=== PATIENT | female | born 1990 | race Caucasian/White ===

== ENCOUNTER → 2017-04-13 | Outpatient (CLI) | payer BC ==
[2017-04-13 18:49] LABS: URINE APPEARANCE CLEAR (CLEAR); URINE BILIRUBIN NEG (NEG); URINE COLOR YELLOW; URINE NITRITE NEG (NEG); URINE SPECIFIC GRAVITY 1.016 (1.000-1.030); UROBILINOGEN NEG (NEG)
[2017-04-13 18:55] LABS: MANUAL MICROSCOPIC REQUIRED? NO; REVIEW REQ? NO
== END | disposition home or self-care (01) ==
LOC: C.LABSPEC 17:52
PROVIDERS: ATTEND Obstetrics & Gynecology
DX: O09.10 Supervision of pregnancy with history of ectopic pregnancy, unspecified trimester (principal); Z3A.00 Weeks of gestation of pregnancy not specified

== ENCOUNTER → 2017-04-22 | Outpatient (CLI) | payer BC | END | disposition home or self-care (01) | LOC: C.PAPS 09:32 | PROVIDERS: ATTEND Obstetrics & Gynecology | DX: O09.299 Supervision of pregnancy with other poor reproductive or obstetric history, unspecified trimester (principal); Z3A.00 Weeks of gestation of pregnancy not specified ==

== ENCOUNTER → 2017-04-22 | Outpatient (CLI) | payer BC ==
[2017-04-22 16:41] LABS: BASO % 0.2 %; BASO ABS # 0.02 K/uL (0-0.2); COMPLETE YES; EOS % 0.8 %; HEMATOCRIT 42.7 % (37-47); IG% 0.3 %; LYMPH % 17.5 %; LYMPH ABS # 1.83 K/uL (1.2-3.4); MEAN CELL VOLUME 86.6 fL (80-100); MEAN CORPUSCULAR HEMOGLOBIN 29.4 pg (25-34); MEAN PLATELET VOLUME 10.3 fL (7.4-10.4); MONO % 8.5 %; NEUT % 72.7 %; PLATELET COUNT 271 K/uL (130-400); RED BLOOD COUNT 4.93 M/uL (4.2-5.4); WHITE BLOOD COUNT 10.44 K/uL (4.8-10.8)
[2017-04-25 13:45] LABS: CHLAMYDIA TRACH RNA*** NOT DETECTED (NOT DETECTED); GC (NEIS GONORRHOEAE)RNA** NOT DETECTED (NOT DETECTED)
== END | disposition home or self-care (01) ==
LOC: C.LAB1850 15:12
PROVIDERS: ATTEND Obstetrics & Gynecology
DX: O09.299 Supervision of pregnancy with other poor reproductive or obstetric history, unspecified trimester (principal); Z3A.00 Weeks of gestation of pregnancy not specified

== ENCOUNTER → 2017-08-26 | Outpatient (CLI) | payer BC | END | disposition home or self-care (01) | LOC: C.LABSPEC 17:53 | PROVIDERS: ATTEND Obstetrics & Gynecology | DX: Z34.82 Encounter for supervision of other normal pregnancy, second trimester (principal) ==

== ENCOUNTER → 2017-09-10 | Outpatient (CLI) | payer BC | END | disposition home or self-care (01) | LOC: C.LAB1850 15:16 | PROVIDERS: ATTEND Obstetrics & Gynecology | DX: Z34.83 Encounter for supervision of other normal pregnancy, third trimester (principal) ==

== ENCOUNTER → 2017-09-16 | Outpatient (CLI) | payer BC ==
[2017-09-16 17:20] LABS: HEMATOCRIT 35.1 % (37-47); HEMOGLOBIN 11.7 g/dL (12.0-16.0)
== END | disposition home or self-care (01) ==
LOC: C.LAB1850 16:23
PROVIDERS: ATTEND Obstetrics & Gynecology
DX: Z34.82 Encounter for supervision of other normal pregnancy, second trimester (principal)

== ENCOUNTER → 2017-10-28 | Outpatient (CLI) | payer BC ==
[~2017-10-28] MED LIST: PRENTAB26 PO
== END | disposition home or self-care (01) ==
LOC: C.LAB1850 13:50
PROVIDERS: ATTEND Family Medicine
DX: Z34.03 Encounter for supervision of normal first pregnancy, third trimester (principal)

== ENCOUNTER 2017-10-30 23:49 | Inpatient (IN) | payer BC ==
[~2017-10-30] VITALS: Ht 154.9 cm; Wt 74.8 kg
[2017-10-31] MEDS ORDERED: LACTATED RINGER'S 1000ML 1,000 ML IV PRN (00:11)
[2017-10-31] MEDS ORDERED: LACTATED RINGER'S 1000ML 1,000 ML IV SCH (00:11)
[2017-10-31] MEDS ORDERED: PENICILLIN G POTASSIUM IV 6 MU in DEXTROSE 5% 250ML 250 ML IV ONE (00:15)
[2017-10-31] MEDS ORDERED: PENICILLIN G POTASSIUM IV 3 MU in DEXTROSE 5% 100ML 100 ML IV PRN (00:15)
[2017-10-31] MEDS ORDERED: MISOPROSTOLTAB 50 MCG TAB PO PRN (00:15)
[2017-10-31 00:57] LABS: BASO % 0.1 %; BASO ABS # 0.01 K/uL (0-0.2); EOS % 0.8 %; HEMOGLOBIN 11.9 g/dL (12.0-16.0); IG# 0.06 K/uL (0.00-0.02); LYMPH % 21.9 %; LYMPH ABS # 2.87 K/uL (1.2-3.4); MEAN CELL VOLUME 78.9 fL (80-100); MEAN CORPUSCULAR HEMOGLOBIN 26.1 pg (25-34); MEAN PLATELET VOLUME 9.9 fL (7.4-10.4); MONO % 8.7 %; MONO ABS # 1.14 K/uL (0.11-0.59); NEUT ABS # 8.91 K/uL (1.4-6.5); PLATELET COUNT 263 K/uL (130-400); RED CELL DISTRIBUTION WIDTH CV 15.9 % (11.5-14.5); RED CELL DISTRIBUTION WIDTH SD 45.4 fL (36.4-46.3); WHITE BLOOD COUNT 13.09 K/uL (4.8-10.8)
[2017-10-31 01:04] LABS: MEAN CORPUSCULAR HGB CONC 33.1 g/dl (32-36)
[2017-10-31 01:05] LABS: INR 0.9 (0.9-1.1)
[2017-10-31 01:08] VITALS: Ht 154.9 cm; Wt 74.8 kg
[2017-10-31] MEDS ORDERED: PRENTAB26 PO (01:08)
[2017-10-31 01:23] LABS: ALBUMIN 2.5 gm/dl (3.4-5.0); ALKALINE PHOSPHATASE 158 U/L (45-117); ALT/SGPT 12 U/L (12-78); AST/SGOT 15 U/L (15-37); CREATININE 0.64 mg/dl (0.60-1.20); TOTAL PROTEIN 6.5 gm/dl (6.4-8.2); URIC ACID 3.8 mg/dl (2.6-7.2)
[2017-10-31] MEDS ORDERED: EpHEDrine SULFATE INJ 50 MG/ML AMP ONE (04:25)
[2017-10-31] MEDS ORDERED: FENTANYL CITRATE INJ 50 MCG/1 ML 2 ML VIAL ONE (04:25)
[2017-10-31] MEDS ORDERED: BUPIVACAINE 0.25% 30 ML VIAL ONE (04:25)
[2017-10-31] MEDS ORDERED: FENTANYL 2MCG/ML ROPIV 1.25MG/ML 100ML BAG EPI ONE (04:26)
[2017-10-31] MEDS ORDERED: BUTORPHANOL TARTRATE 1 MG/ML VIAL IV PRN (04:30)
[2017-10-31] MEDS ORDERED: NALOXONE HCL INJ 1 MG in SODIUM CHLORIDE 0.9% 1000ML 1,000 ML IV PRN (05:46)
[2017-10-31] MEDS ORDERED: LACTATED RINGER'S 1000ML 500 ML IV PRN (05:46)
[2017-10-31] MEDS ORDERED: EpHEDrine SULFATE INJ 50 MG/ML AMP IV PRN (06:00)
[2017-10-31] MEDS ORDERED: FENTANYL 2MCG/ML ROPIV 1.25MG/ML 100ML BAG EPI PRN (06:00)
[2017-10-31] MEDS ORDERED: NALOXONE HCL INJ 0.4 MG/1 ML VIAL/CARP IV PRN (06:00)
[2017-10-31] MEDS ORDERED: ONDANSETRON INJ 2 MG/ML 2 ML VIAL IV PRN (06:00)
[2017-10-31] MEDS ORDERED: DiphenhydrAMINE HCL 50 MG/ML VIAL IV PRN (06:00)
[2017-10-31] MEDS ORDERED: NALBUPHINE HCL INJ 10 MG/ML AMP IV PRN (06:00)
[2017-10-31] MEDS ORDERED: OXYTOCIN 30 UNITS/500ML NSS IV ONE (06:17)
[2017-10-31] MEDS ORDERED: HYDROCORTISONE ACETATE 25 MG SUPP PR PRN (07:15)
[2017-10-31] MEDS ORDERED: SUPERCREAM 0.870 % 15GM JAR EXT PRN (07:15)
[2017-10-31] MEDS ORDERED: ACETAMINOPHEN 325 MG TAB PO PRN (07:15)
[2017-10-31] MEDS ORDERED: IBUPROFEN 600 MG TAB PO PRN (07:15)
[2017-10-31] MEDS ORDERED: DIPHTHERIA/TETANUS/PERTUSSIS 0.5 ML SYR/VIAL IM. ONE (07:15)
[2017-10-31] MEDS ORDERED: OXYTOCIN 30 UNITS/500ML NSS IV PRN (07:15)
[2017-10-31] MEDS ORDERED: ACETAMINOPHEN/CODEINE 300/30MG TAB PO PRN ×2 (07:15)
[2017-10-31] MEDS ORDERED: BENZOCAINE 20% AER SPR 82.5 GM CAN EXT PRN (07:15)
[2017-10-31] MEDS ORDERED: LANOLIN OINT EXT PRN (07:15)
--- NOTE | 2017-10-31 07:40 | DELIVERY SUMMARY ---
DATE OF OPERATION: 10/31/2017 FINDINGS: Viable male with Apgars of 8 and 9. Baby delivered over a small second degree laceration. Placenta delivered spontaneously. Estimated blood loss 300 mL. LABOR NOTE: The patient is a 27-year-old 4, para 0 with an EDC of 11/20/2017, 37 weeks gestational age who presented to labor and delivery with spontaneous rupture of membranes. The patient states that she had a gush of clear fluid around 2200 hours on the 30 of October. She denied contractions. The patient has had some mildly elevated blood pressures in the last two visits in the office. PIH labs and a 24-hour urine were to be done this weekend. Labs for the showed the blood type of O negative, antibody negative. She received RhoGAM on 10 September. She is rubella immune, hepatitis B negative. She declined cell free DNA testing and maternal serum AFP. She had a normal 1-hour Glucola x2. Her third trimester beta strep culture was pending. Admission physical showed a gravid female. Blood pressure of 142/89. Cervix was 1 cm dilated, 75% and -2 station. She had a positive AmniSure consistent with rupture of membranes. heart rate tracing was category 2 with moderate variability, but there were accelerations and the baseline was in the 180s. PIH labs were drawn and checked and they were all within normal limits. Because of the unknown GBS status, the patient received a loading dose of penicillin 6 milliunits and then 3 milliunits every 4 hours until delivery. Discussed with the patient and she was given Cytotec 50 mcg p.o. to induce labor. The patient began to contract regularly, progressed to 3 cm and requested an epidural. Right after the epidural was placed, the patient was fully dilated and began her second stage. She pushed for approximately an hour, delivering the viable male . Cord was clamped and cut. Cord blood sample was obtained. Placenta delivered spontaneously. Inspection of the perineum showed a small second degree midline laceration which was repaired with interrupted [id number] 4-0 Vicryl sutures. Estimated blood loss was 300 mL. Sponge and needle count was correct. I attest to the content of the Intraoperative Record and any orders documented therein. Any exception s are noted below.
--- NOTE | 2017-10-31 08:51 | Anesthesia Procedure Note ---
Anesthesia Epidural Removal Nt Date & Time Oct 31, 2017 at 08:50 Vital Signs Pain Intensity: 0.0 Notes Mental Status: alert / awake / arousable, participated in evaluation Nausea / Vomiting: adequately controlled Pain: adequately controlled Airway Patency, RR, SpO2: stable & adequate BP & HR: stable & adequate Hydration State: stable & adequate Neuraxial Anesthesia: was administered Anesthetic Complications: no major complications apparent, pt satisfied with anesthetic care Epidural: removed without complications, with tip intact
[2017-10-31] MEDS: FERROUS SULFATE 325 MG TAB PO SCH (09:21)
[2017-10-31] MEDS: PRENATAL VITAMIN TAB PO SCH (09:21)
[2017-10-31] MEDS: DOCUSATE SODIUM 100 MG CAP PO SCH ×2 (09:21→20:11)
[2017-10-31 10:22] VITALS: BP 141/84; PULSE 105; TEMP 36.7
[2017-10-31 12:50] VITALS: BP 140/76; PULSE 109; TEMP 36.3
[2017-10-31 15:15] VITALS: BP 127/85; PULSE 88; TEMP 36.6; O2SAT 98
[2017-10-31 19:20] VITALS: BP 144/85; PULSE 105; TEMP 36.7; O2SAT 98
[2017-10-31 23:45] VITALS: BP 120/79; PULSE 83; TEMP 36.8; O2SAT 99
[2017-11-01 03:15] VITALS: BP 127/78; PULSE 86; TEMP 36.7; O2SAT 97
[2017-11-01 06:59] LABS: HEMATOCRIT 36.2 % (37-47); HEMOGLOBIN 11.5 g/dL (12.0-16.0)
--- NOTE | 2017-11-01 08:29 | Progress Note ---
Subjective Nov 01, 2017. Subjective conversation w/ patient, physical exam Ambulation: ambulating normally Voiding: no voiding problems Passing Gas: Yes Diet Tolerance: Regular Diet Lochia: Small Feeding Type: Breast Feeding Review of Systems Constitutional: No fever, No chills, No sweats, No weight loss, No weakness, No fatigue, No problem reported Female : No see HPI, No dysuria, No urinary frequency, No hematuria, No incontinence, No abnormal vaginal bleeding, No vaginal discharge, No problem reported Objective Vital Signs Date Time Temp Pulse Resp B/P (MAP) Pulse Ox O2 Delivery O2 Flow Rate FiO2 11/01/17 03:15 36.7 86 18 127/78 (94) 97 Room Air 10/31/17 23:45 36.8 83 20 120/79 (93) 99 Room Air 10/31/17 23:45 99 Room Air 10/31/17 19:20 36.7 105 18 144/85 (104) 98 Room Air 10/31/17 15:15 36.6 88 18 127/85 (99) 98 Room Air 10/31/17 15:15 98 Room Air 10/31/17 12:50 36.3 109 16 140/76 (97) Room Air 10/31/17 10:22 Room Air 10/31/17 10:22 36.7 105 16 141/84 (103) Room Air Physical Exam General Appearance: WELL-APPEARING, NO APPARENT DISTRESS Abdomen: non tender, soft Fundus: Firm, Non-Tender, Relation to Umbilicus (1 below U) Extremities: no calf tenderness Laboratory Results Last 24 Hours Test 11/01/17 06:41 Hemoglobin 11.5 g/dL Hematocrit 36.2 % Assessment and Plan Day#: 1 Continue Routine Care: stable course continue current care plan
[2017-11-01 08:30] VITALS: BP 118/84; PULSE 88; TEMP 36.9; O2SAT 97
--- NOTE | 2017-11-01 08:31 | Discharge Instructions ---
Discharge Instructions Date of Service Nov 01, 2017. Admission Reason for Admission: Encounter For Supervision Of Normal Intrauterine Discharge Discharge Diagnosis / Problem: normal delivery Discharge Goals Goal(s): Routine recovery after delivery Medications Continue Dispensed Medications: supercream, dermaplast, tucks, lansinoh Activity Recommendations Activity Limitations: per Instructions/Follow-up section . Instructions / Follow-Up Instructions / Follow-Up ACTIVITY RECOMMENDATIONS: * Gradual return to full activity over the next 2-3 weeks. * No lifting - nothing heavier than baby over the next 2-3 weeks. * Do not engage in vigorous exercise, sexual activity or sports until cleared by your physician. * Do not drive or operate any motorized equipment until cleared by your physician. * You may shower/bathe daily. MEDICATIONS: For discomfort or pain, you may use Acetaminophen (Tylenol), Ibuprofen (Advil), or Naproxen (Aleve) following the package directions. For constipation you may use Colace following the package directions. BREAST CARE: If you are not breast feeding: * Wear a supportive bra 24 hours a day for one to two weeks. * Avoid stimulating your breasts and nipples as much as possible during the first few weeks after delivery. * When taking a shower, have the warm water hit your back, not breasts. * When your breasts feel full, apply ice packs. Usually three to four times a day helps ease the discomfort. * Take a mild pain medication (Tylenol / Motrin) when you are uncomfortable. If breast feeding: * Use breast milk to lubricate nipples. Lansinoh cream may be used for sore nipples. You do not need to remove cream prior to breast feeding. If using a different brand of cream, check the label for directions regarding removal of cream prior to nursing. * Wear a supportive bra. * If having problems with breasts or breast feeding, call a analytical consultant or your health care provider. EPISIOTOMY CARE: After delivery, if you have an episiotomy (stitches), the following steps will ease discomfort and aid healing. * For the first 24 hours after delivery, place ice packs next to your episiotomy to help reduce swelling. * After the first 24 hour-period, sitz baths, either portable or in the tub, are suggested. A shower with a shower arm sprayed over the episiotomy may be comforting. * Ольга care should be done after each voiding and bowel movement. Squirt warm water from a plastic bottle over the perineum (region of the body between the anus and urinary opening) and pat dry. * Use Dermoplast to ease discomfort. Shake container. Mouthcard directly over the episiotomy. Place a Tucks on a clean sanitary pad next to your episiotomy. SPECIAL CARE INSTRUCTIONS: When you are discharged from the hospital, it is important for you to follow the instructions listed below: * During the first week at home, you should be able to care for yourself and your baby. In addition, the usual light household activities are encouraged. * Limit your activities to the way you feel. Do not try to clean the house or move furniture. Be sensible. * If you actively engage in sports and have done so up until the time of your delivery, you may resume these activities as soon as you feel able. This may take up to one month or even longer. Use good judgment. * Continue to take your vitamins for at least six weeks after the of your baby. * Your diet need not be limited unless you were on a special diet before your delivery. Breast-feeding mothers need around 2500 calories per day and at least 64-80 ounces of fluid per day (8 to 10 glasses). * You should eat foods from the four major food groups. Crash diets or fad diets are to be avoided. Eating lean meats, fresh fruits and vegetables, low-fat dairy products, high fiber foods and a regular exercise program, will help you get back to your pre- weight without putting your health at risk. * Constipation is sometimes a problem after delivery. Take a mild laxative as needed. If breast feeding, Milk of Magnesia is acceptable to use. You may use a suppository or Fleets enema if no episiotomy. * A daily shower or tub bath is suggested. Be sure to thoroughly and gently dry the perineum. * A bloody vaginal discharge will usually continue until around four weeks post . A small amount of bleeding may continue for as long as six weeks. Vaginal discharge changes from the bright red bleeding after delivery to pink then brownish and finally yellowish-pink before becoming white and disappearing. * Bleeding may increase with activity. Your first period may come in 4-8 weeks. If you are breast feeding, your period may be delayed even longer. * [place] (sex) can begin whenever both you and your partner feel comfortable and do not have any form of genital infection. It is recommended that you wait at least six weeks for internal and external healing to occur. If you have questions, please talk to your health care practitioner. A condom should be used to prevent infection and . * Foreplay, gentle intercourse and lubrication is very important the first several times to prevent pain. A water-based lubricant such as K-Y jelly or Astroglide may be used. * If you have RH negative blood and your baby is RH positive, you will receive RHOGAM by injection prior to discharge. The nurse will give you a card to keep with you that has the date and place that you received RHOGAM after delivery. * During your care, you had a Rubella screen done to check for the presence of rubella antibodies in your blood. If your test was negative, you will receive a Rubella vaccine prior to discharge. This vaccine may cause a fever, soreness at the injection site and flu-like symptoms. If these symptoms persist, notify your health care practitioner. is not advised for one month after a Rubella vaccine. * Verbalizes understanding of car seat law as reviewed with patient nursing. * Car Seat hand-out given and reviewed with patient by nursing. * Shaken baby information reviewed with patient by nursing. Call you doctor if: * Heavy bleeding (saturating several pads an hour) or passing clots the size of your fist. * A fever >101 degrees F (38.3 degrees C) on two occasions four hours apart and /or chills. * Unusual pain in the pelvic or vaginal areas. * "Baby Blues" lasting longer than two weeks. If you have any questions or concerns, call your health care practitioner at . FOLLOW UP VISIT: * Please call the office at to schedule a 6 week examination. It is important you keep this appointment. It is important for you to make arrangements for either yearly or twice yearly check-ups thereafter. Current Hospital Diet Patient's current hospital diet: Regular OB Diet Discharge Diet Recommended Diet: Regular OB Diet Pending Studies Studies pending at discharge: no Medical Emergencies . Who to Call and When: Medical Emergencies: If at any time you feel your situation is an emergency, please call 911 immediately. . Non-Emergent Contact Non-Emergency issues call your: Certified Pest Control Technician . . "Provider Documentation" section prepared by Paz Mayfield .
[2017-11-01] MEDS: DOCUSATE SODIUM 100 MG CAP PO SCH ×2 (08:46→20:00)
[2017-11-01] MEDS: FERROUS SULFATE 325 MG TAB PO SCH (08:46)
[2017-11-01] MEDS: PRENATAL VITAMIN TAB PO SCH (08:46)
[2017-11-01 16:05] VITALS: BP 126/87; PULSE 97; TEMP 36.7; O2SAT 98
[2017-11-01 19:45] VITALS: BP 133/88; PULSE 97; TEMP 36.7
[2017-11-01] MEDS ORDERED: BISACODYL 5 MG TABEC PO SCH (20:00)
[2017-11-01 20:44] VITALS: BP_DIAS 88; PULSE 97; TEMP 36.7
== END 2017-11-01 20:44 | disposition home or self-care (01) | DRG 775 ==
LOC: C.OPB 23:49 → C.LD 23:50 → C.OPB 10-31 00:15 → C.OBG 10-31 14:38
PROVIDERS: ADMIT Obstetrics & Gynecology; ATTEND Obstetrics & Gynecology
PROC: 0KQM0ZZ Repair Perineum Muscle, Open Approach (ICD-10-PCS; principal; 2017-10-31)
PROC: 10E0XZZ Delivery of Products of Conception, External Approach (ICD-10-PCS; principal; 2017-10-31)
DX: O42.02 Full-term premature rupture of membranes, onset of labor within 24 hours of rupture (principal); O70.1 Second degree perineal laceration during delivery; Z3A.37 37 weeks gestation of pregnancy; Z37.0 Single live birth

== ENCOUNTER 2021-11-21 08:17 | Inpatient (IN) ==
[2021-11-21] MEDS ORDERED: OXYTOCIN 30 UNITS/500 ML BAG IV PRN (20:18)
--- NOTE | 2021-11-21 20:18 | History & Physical Report ---
Date of Service November 21, 2021 Assessment & Plan (1) Gestational HTN: Plan: Patient is met the criteria for gestational hypertension the recommendation is induction at 37-37 and 6 weeks gestation she is 37 weeks and 0 days today so she will be induced. Plan has been to induce her this morning however labor and delivery was very busy and we did not have availability at that time Small catheter was placed in her cervix tonight as her cervix was only 1 cm she tolera chun this well 30 cc was placed in the balloon sterile technique The patient is hungry at this time will allow a small amount of dinner and induced with Pitocin Admission and Anticipated Discharge Date Admission Date: November 21, 2021 History of Present Illness Primary Care Provider: Julien Solano Current Estimate 12/12/21 LMP (Certain) 36w 6d LMP: 03/07/21 : 5 Full term: 1 Premature: 0 Total Number of Induced Abortions: 0 Total Number of Spontaneous Abortions: 2 Ectopics: 1 Multiple births: 0 Number of Living Children: 1 and Delivery Plans Rhogam given 09/23/21 OC GBS positive Gest HTN (11/18/21) *Weekly BP chk's with Doc *Weekly CBC, LFTs *Weekly NSTs @32wks and twice wkly @36wks *Growth US Q4wks *If IUGR: DELPHINE w/UAD's weekly *Deliver 37-38wks (11/21/21) Allergies Allergy/AdvReac Type Severity Reaction Status Date / Time No Known Drug Allergies Allergy Unknown . Verified 11/20/21 15:07 Home Medications Medication Instructions Recorded Confirmed Type folic acid 800 mcg tablet 800 mcg PO DAILY tab 04/23/19 11/21/21 History prenat.vits,christina,[id number] 1 tab PO DAILY 04/23/19 11/21/21 History cholecalciferol (vitamin D3) 1,000 units PO DAILY 05/30/19 11/21/21 History Patient History Medical History History of varicella Hx of migraines Surgical History H/O oral surgery Hx of ectopic left salpingectomy Family History Mother Hypertension Thyroid disorder Social History Smoking Status: Never smoker Hx Alcohol Use: No Hx Substance Use: No Preferred Language: Croatian Communication Ability: Effective Supervisor [employer] Required: No Beliefs That Will Affect Care: None marital status: marital status details: Jeremy (34) [phone] Current Living Situation: Spouse Current Living Situation Comment: lives with spouse, son, 1 dog. current occupational status: employed current occupation: [email or web address] office Other Information That Helps Us Care for You: No Feels Safe at Home: Yes Safety Concerns: Feels Safe At This Time Assistive Devices: Contacts Results & Data ([facility]) Vital Signs (Past 12 Hours) Vital Signs Temp Pulse Resp BP 11/21/21 19:08 98.6 F 93 H 16 134/84 11/21/21 17:39 98.8 F 20 11/21/21 17:28 87 119/85 11/21/21 17:18 98.8 F 20 Coding Level of Care Code None Diagnoses Gestational HTN O13.9
[2021-11-21] MEDS ORDERED: PENICILLIN G POTASSIUM 6 MU in DEXTROSE 5% 250 ML IV ONE (20:30)
[2021-11-21 20:39] LABS: Hematocrit (blood only) 37.6 % (37-47); Hemoglobin 12.4 g/dL (12.0-16.0); Mean Corpuscular Hemoglobin 27.6 pg (25-34); Mean Corpuscular Volume 83.6 fL (80-100); Mean Platelet Volume 10.2 fL (7.4-10.4); Platelet Count 258 K/uL (130-400); RDW Coefficient of Variation 14.7 % (11.5-14.5); RDW Standard Deviation 45.6 fL (36.4-46.3); White Blood Count 11.08 K/uL (4.8-10.8)
[2021-11-22] MEDS ORDERED: OXYTOCIN 30 UNITS/500 ML BAG IV PRN ×2 (02:47→14:30)
[2021-11-22] MEDS: ACETAMINOPHEN 325 MG TAB PO PRN ×2 (03:19→18:04)
[2021-11-22] MEDS: LACTATED RINGER'S 1,000 ML IV PRN ×3 (03:25→10:43)
[2021-11-22] MEDS ORDERED: ePHEDrine sulfate 50 MG/ML AMP ONE (04:33)
[2021-11-22] MEDS ORDERED: SODIUM CHLORIDE 0.9% INJ 10 ML VIAL ONE (04:34)
[2021-11-22] MEDS ORDERED: fentaNYL citrate 100 MCG/2 ML VIAL ONE (04:34)
[2021-11-22] MEDS ORDERED: BUPIVACAINE 0.25% 30 ML VIAL ONE (04:34)
[2021-11-22] MEDS ORDERED: fentaNYL 2MCG/ML ROPIVACAINE 1.25MG/ML 100 ML BAG EPI ONE (04:34)
[2021-11-22] MEDS ORDERED: ONDANSETRON INJ 2 MG/ML 2 ML VIAL IV PRN (05:16)
[2021-11-22] MEDS ORDERED: NALOXONE HCL 1 MG in SODIUM CHLORIDE 0.9% 1000ML 1,000 ML IV PRN (05:16)
[2021-11-22] MEDS ORDERED: fentaNYL 2MCG/ML ROPIVACAINE 1.25MG/ML 100 ML BAG EPI PRN (05:16)
[2021-11-22] MEDS ORDERED: diphenhydrAMINE 50 MG/ML VIAL IV PRN (05:16)
[2021-11-22] MEDS ORDERED: NALOXONE HCL 0.4 MG/1 ML VIAL/CARP IV PRN (05:16)
[2021-11-22] MEDS ORDERED: NALBUPHINE HCL INJ 10 MG/ML AMP IV PRN (05:16)
[2021-11-22] MEDS ORDERED: ePHEDrine sulfate 50 MG/ML AMP IV PRN (05:16)
--- NOTE | 2021-11-22 05:19 | Anesthesiology Consultation ---
Date of Service November 22, 2021 Assessment & Plan Chart Review Chart Review: Patient NOT seen in Pre Admission Testing and Acceptable Risk for Labor Epidural Consults Requested none ASA ASA2 Proposed Anesthesia Anesthesia Type: Labor Epidural and CSE Risk / Benefits Reviewed With: PT / POA / Parent / Guardian, Accepts Plan and Informed Consent Obtained History Height/Weight Height: 5 ft 2 in Weight: 77.111 kg Allergies Allergy/AdvReac Type Severity Reaction Status Date / Time No Known Drug Allergies Allergy Unknown . Verified 11/20/21 15:07 Medications Home Medications Medication Instructions Recorded Confirmed Last Taken folic acid 800 mcg tablet 800 mcg PO DAILY tab 04/23/19 11/21/21 11/21/21 prenat.vits,christina,[id number] 1 tab PO DAILY 04/23/19 11/21/21 11/21/21 cholecalciferol (vitamin D3) 1,000 units PO DAILY 05/30/19 11/21/21 11/21/21 Active Medications Generic Name Dose Route Start Last Admin Trade Name Freq PRN Reason Stop Dose Admin Acetaminophen 650 mg 11/22/21 03:11 11/22/21 03:19 Acetaminophen 325 Mg Tab PO 12/22/21 03:10 650 mg Q4H PRN Administration Headache Lactated Ringer's 1,000 mls @ 125 mls/hr 11/21/21 20:18 11/22/21 04:37 Lr IV 11/23/21 20:17 999 mls/hr .Q8H PRN Infusion L&D Protocol Protocol NPO Date Last Intake of Fluids: 11/22/21 Time Last Intake of Fluids: 04:00 Date Last Intake of Solids: 11/21/21 Time Last Intake of Solids: 18:00 Past Medical History Medical History History of varicella Hx of migraines Exercise / Class Metabolic Activity II 4-5 Yardwork/Stairs/Walk up hill Past Family History Family History Mother Hypertension Thyroid disorder Past Surgical History Surgical History H/O oral surgery Hx of ectopic left salpingectomy Past Anesthesia History No Hx of Anesthesia Complications and No Family Hx of Anesthesia Complications History of PONV No Hx of PONV and No Hx of Motion Sickness Social History Smoking Status: Never smoker Hx Alcohol Use: No Hx Substance Use: No substance use type: does not use Review of Systems no chest pain or sob Physical Exam Vital Signs Last Vital Signs Temp 36.8 C 11/22/21 03:35 Pulse 100 H 11/22/21 05:14 Resp 16 11/22/21 03:35 BP 120/80 11/22/21 03:35 Pulse Ox 98 11/22/21 05:14 ENMT Mouth: no TMJ abnormality Thyromental Distance: > or= 3.5 Finger Breadths Mallampati Class: II Neck normal visual inspection Respiratory normal respiratory effort Auscultation: lungs clear to auscultation bilaterally Cardiovascular Rate/Rhythm: regular rate and regular rhythm Musculoskeletal Spine: normal cervical ROM Neurologic moves all extremities Psychiatric Orientation: alert and oriented x 3 Testing Laboratory Results 11/21/21 20:26
[2021-11-22] MEDS: PENICILLIN G POTASSIUM 3 MU in DEXTROSE 5% 100 ML IV PRN ×2 (07:32→11:28)
[2021-11-22] MEDS ORDERED: bisacodyL 10 MG SUPP PR PRN (14:30)
[2021-11-22] MEDS ORDERED: oxyCODONE/ACETAMINOPHEN 5mg/325mg TAB PO PRN (14:30)
[2021-11-22] MEDS ORDERED: BENZOCAINE 20% AER SPR 82.5 GM CAN EXT PRN (14:30)
[2021-11-22] MEDS ORDERED: IBUPROFEN 600 MG TAB PO PRN (14:30)
[2021-11-22] MEDS ORDERED: HYDROCORTISONE ACETATE 25 MG SUPP PR PRN (14:30)
[2021-11-22] MEDS ORDERED: DIPHTHERIA/TETANUS/PERTUSSIS 0.5 ML SYR/VIAL IM ONE (14:30)
[2021-11-22] MEDS ORDERED: ACETAMINOPHEN 325 MG TAB PO PRN (14:30)
--- NOTE | 2021-11-22 14:38 | Anesthesia Procedure Note ---
Date of Service November 22, 2021 Anesthesia Post Epidural Note Vital Signs Vital Signs: Temp Pulse Resp BP Pulse Ox 36.9 C 94 H 20 124/79 96 11/22/21 14:15 11/22/21 14:29 11/22/21 14:30 11/22/21 14:29 11/22/21 14:19 Pain Intensity Head: Pain Intensity: 7 Abdomen: Pain Intensity: 0 Notes Mental Status: alert / awake / arousable and participated in evaluation Nausea / Vomiting: adequately controlled Pain: adequately controlled Airway Patency, RR, SpO2: stable & adequate BP & HR: stable & adequate Hydration State: stable & adequate Neuraxial Anesthesia: was administered and sensory block is resolving Anesthetic Complications: no major complications apparent and Pt Satisfied with anesthetic care Epidural: Removed without complications and With tip intact Notes: Epidural site clean, dry and intact. No signs of edema, erythema or bruising at insertion site. Pt instructed to request anesthesia if she has residual lower extremity numbness or if she develops lower extremity pain or weakness, back pain or headache.
--- NOTE | 2021-11-22 15:02 | Delivery Summary ---
Vaginal Delivery Summary Date of Service November 22, 2021 Vaginal Delivery Summary [facility] Patient is a 31-year-old 5 para 1-0-3-1 female EDC of 12/12/2021 who presents at 37-1/7 weeks for induction because of gestational hypertension. She received Pitocin augmentation of her labor and effective epidural analgesia. She progressed to fully dilated with an urge to push. She delivered a viable female through 1 contraction over intact perineum. Loose nuchal cord was reduced prior to delivering the rest of the . Rest delivered easily and was placed on mother's abdomen for further attention and drying. After 1 minute the cord was clamped and cut. After cord blood was obtained, the placenta was expressed intact with a three-vessel cord. Perineum was noted to be intact. bleeding was controlled with dilute Pitocin and fundal massage. Estimated blood loss is 200 cc. Mother and were doing well after [place] [facility] [place] Delivery Type Details: [facility]
[2021-11-22] MEDS: DOCUSATE SODIUM 100 MG CAP PO SCH (20:45)
--- NOTE | 2021-11-23 06:35 | Obstetrical Progress Note ---
Date of Service <Esthre Dietz DO - Last Filed: 11/23/21 07:46> November 23, 2021 Assessment & Plan <Esther Dietz DO - Last Filed: 11/23/21 07:46> (1) Encounter for care and examination after delivery: 31 yo post op day1 from pregancy complicated with gHTN, doing well. -Continue routine post care. -vital signs reviewed and WNL (Tmax 36.7) -Blood Type O- received rhogam in office, GBS+ received penicillin, Rubella i [facility] -Encourage ambulation, monitor and control pain with Motrin, tylenol PRN, resume regular diet, monitor lochia -encourage breast pump with formula supplementation feeding -hemoglobin 12.4 Day #:: 1 <Paz Solitario MD, FACOG - Last Filed: 11/23/21 11:16> (1) Encounter for care and examination after delivery: Subjective <Esther Dietz DO - Last Filed: 11/23/21 07:46> Ambulation: ambulating normally Voiding: no voiding problems Passing Gas:: Yes Diet Tolerance:: regular diet Lochia:: Small Feeding Type:: breast feeding Current Pain Level(1-10): 0 Review of Systems Denies fever, chills, sweats Denies shortness of breath, difficulty breathing, chest pain, palpitations, chest pressure. Denies breast pain. Denies dysuria. Denies headache or changes in vision. Physical Exam <Esther Dietz DO - Last Filed: 11/23/21 07:46> General: Alert, oriented. No acute distress. Cardiac: Regular rate and rhythm, no murmurs/rubs/gallops. Respiratory: Clear to auscultation bilaterally a/p, no wheezes/rales/rhonchi. No increased work of breathing. Symmetrical chest rise. No respiratory distress. Abdomen: Soft, nontender, nondistended. Bowel sounds present. Uterus: Uterine fundus firm, palpable 2 cm below umbilicus. Lower Extremities: No lower extremity edema or swelling. No deep calf pain. Lauren's negative bilaterally.. Results & Data ([facility]) <Esther Dietz DO - Last Filed: 11/23/21 07:46> Vital Signs (Past 12 Hours) Vital Signs Temp Pulse Resp BP Pulse Ox 11/23/21 03:45 36.7 C 84 16 113/80 98 11/22/21 23:30 36.7 C 93 H 18 114/77 97 11/22/21 19:33 36.3 C L 100 H 16 123/86 94 <Paz Solitario MD, FACOG - Last Filed: 11/23/21 11:16> Co-Signing Physician Notes Resident Physician Supervision Note: I interviewed and examined the patient. Discussed with Dr. Dietz and agree with findings and plan as documented in the note. Any exceptions or clarifications are listed here: [None] Documented By: Paz Solitario MD, FACOG Resident Activity Tracking <Esther Dietz DO - Last Filed: 11/23/21 07:46> Resident Involvement: Resident Care Provided Care Provided: Adult Hospital Medicine and OB Delivery
[2021-11-23 06:36] LABS: Hematocrit (blood only) 32.9 % (37-47); Hemoglobin 10.6 g/dL (12.0-16.0); Mean Corpuscular Hemoglobin 27.2 pg (25-34); Mean Corpuscular Hgb Conc 32.2 g/dL (32-36); Mean Corpuscular Volume 84.6 fL (80-100); Mean Platelet Volume 10.5 fL (7.4-10.4); Platelet Count 225 K/uL (130-400); Red Blood Count 3.89 M/uL (4.2-5.4); White Blood Count 11.48 K/uL (4.8-10.8)
[2021-11-23] MEDS ORDERED: PRENATAL VITAMIN 1 TAB PO SCH (08:00)
[2021-11-23] MEDS: DOCUSATE SODIUM 100 MG CAP PO SCH (08:02)
[2021-11-23] MEDS ORDERED: bisacodyL 5 MG TABEC PO SCH (20:00)
== END 2021-11-23 16:35 | disposition home or self-care (01) | DRG 807 ==
LOC: 4S1 16:58 → 4E2 11-22 17:48